=== PATIENT | male | born 1965 | race African-American/Black ===

== ENCOUNTER 2024-10-16 22:31 | Inpatient (IN) | payer SELFPAY ==
[~2024-10-16] VITALS: Ht 188 cm; Wt 79.4 kg
[2024-10-16 22:37] VITALS: O2SAT 100
[2024-10-16] MEDS ORDERED: MORPHINE SULFATE 4 MG/ML INJ (FOR IV/IM USE) IV STA (23:30)
[2024-10-17] MEDS: ONDANSETRON HCL 4MG/2ML INJ IV NR ×2 (00:30→05:39)
[2024-10-17] MEDS: ONDANSETRON HCL 4MG/2ML INJ IV STA (01:01)
[2024-10-17] MEDS: MORPHINE SULFATE 4 MG/ML INJ (FOR IV/IM USE) IV NR (01:03)
[2024-10-17] MEDS: SODIUM CHLORIDE 0.9% 1,000 ML IV ONE (01:04)
[2024-10-17 01:41] LABS: BASOPHILS % 0.3 % (0.0-2.0); EOSINOPHILS % 0.3 % (0.0-5.0); HEMOGLOBIN. 13.6 g/dL (14.0-18.0); LYMPHOCYTES % 14.1 % (20.0-50.0); MEAN CORPUSCULAR HEMOGLOBIN 31.2 pg (28.0-32.0); MEAN CORPUSCULAR HGB CONC 34.1 g/dL (31.0-37.0); MEAN CORPUSCULAR VOLUME 91.6 fL (80.0-94.0); MEAN PLATELET VOLUME 8.3 fl (7.4-10.4); MONOCYTES % 9.6 % (2.0-8.0); NEUTROPHILS % 75.7 % (40.0-76.0); PLATELET 137 x1000/uL (130-400); RED BLOOD CELL COUNT 4.37 mill/uL (4.7-6.1); RED CELL DISTRIBUTION WIDTH 13.8 % (11.6-14.6); WHITE BLOOD COUNT 9.6 x1000/uL (4.5-11.0)
[2024-10-17 01:59] LABS: CHLORIDE 106 mEq/L (98-107); POTASSIUM 3.8 mEq/L (3.5-5.1); SODIUM 141 mEq/L (136-145)
[2024-10-17 02:00] LABS: CALCIUM 8.4 mg/dL (8.7-10.4); CARBON DIOXIDE 24 mEq/L (21-32)
[2024-10-17 02:05] LABS: CREATININE 0.9 mg/dL (0.6-1.3); ETHANOL BLOOD 155 mg/dL (<10); GLUCOSE 109 mg/dL (70-105); TROPONIN I HIGH SENSITIVITY 5 ng/L (3.0-53); UREA NITROGEN BLOOD 8 mg/dL (9-23)
[2024-10-17 05:04] VITALS: BP 132/92; PULSE 71; RESP 19; TEMP 36.8
[2024-10-17 08:00] VITALS: BP 142/91; PULSE 79; RESP 18; TEMP 36.9
[2024-10-17] MEDS ORDERED: DOCUSATE SODIUM 100MG CAPSULE PO PRN (09:00)
[2024-10-17] MEDS ORDERED: CLONIDINE 0.1MG TABLET PO PRN (09:00)
[2024-10-17] MEDS ORDERED: GUAIFENESIN 200MG/10ML SUGAR FREE UDC PO PRN (09:00)
[2024-10-17] MEDS ORDERED: MAGNESIUM/ALUMINUM HYDROXIDE/SIMETHICONE 30ML UDC PO PRN (09:00)
[2024-10-17] MEDS ORDERED: DEXTROSE 50% WATER 50ML SYRINGE IV PRN (09:00)
[2024-10-17] MEDS: PANTOPRAZOLE SODIUM 40 MG/VIAL IV SCH (09:00)
[2024-10-17] MEDS ORDERED: NALOXONE HCL 0.4MG/ML VIAL IV PRN (09:15)
[2024-10-17] MEDS: ONDANSETRON HCL 4MG/2ML INJ IV PRN (10:09)
[2024-10-17 10:51] LABS: CLARITY URINE CLEAR (CLEAR); COLOR URINE YELLOW (YELLOW); GLUCOSE URINE NEGATIVE (NEGATIVE); KETONES URINE NEGATIVE (NEGATIVE); LEUKOCYTE ESTERASE URINE NEGATIVE (NEGATIVE); NITRITE URINE NEGATIVE (NEGATIVE); OCCULT BLOOD URINE 1+ (NEGATIVE); PROTEIN URINE NEGATIVE (NEGATIVE); UROBILINOGEN URINE 0.2 E.U./dL (0.2-1.0)
[2024-10-17] MEDS: MORPHINE SULFATE 4 MG/ML INJ (FOR IV/IM USE) IV PRN (11:05)
[2024-10-17 11:10] LABS: *AMPHETAMINES SCREEN URINE NEGATIVE (NEGATIVE); *BARBITURATES SCREEN URINE NEGATIVE (NEGATIVE); *BENZODIAZEPINES SCREEN URINE NEGATIVE (NEGATIVE); *COCAINE SCREEN URINE NEGATIVE (NEGATIVE); METHADONE URINE SCREEN NEGATIVE (NEGATIVE); OPIATES URINE SCREEN PRESUMPTIVE POSITIVE (NEGATIVE); PHENCYCLIDINE URINE SCREEN NEGATIVE (NEGATIVE)
[2024-10-17 11:11] LABS: CANNABINOID URINE SCREEN PRESUMPTIVE POSITIVE (NEGATIVE); ECSTASY MDMA SCREEN URINE NEGATIVE (NEGATIVE)
[2024-10-17] MEDS: MVI, ADULT NO.1 10 ML, FOLIC ACID 1 MG, THIAMINE HCL 100 MG in SODIUM CHLORIDE 0.9% 1,0... IV ONE (11:19)
[2024-10-17 11:44] LABS: BACTERIA URINE NONE SEEN; RBC URINE 0-2 /hpf (0-2); SQUAMOUS EPITHELIAL CELL URINE RARE /lpf (RARE/1+); WBC URINE 0-2 /hpf (0-2); YEAST URINE NONE SEEN
[2024-10-17 12:00] VITALS: BP 134/87; PULSE 82; TEMP 37.1
[2024-10-17 15:58] VITALS: BP 138/89; PULSE 74; RESP 18; TEMP 36.5
[2024-10-17 20:00] VITALS: BP_SYST 149; BP_SYST 150; BP_SYST 158; BP_DIAS 105; BP_DIAS 94; BP_DIAS 98; PULSE 76; RESP 21; TEMP 36.7; O2SAT 98
[2024-10-17] MEDS: ACETAMINOPHEN 325MG TABLET PO PRN (20:33)
[2024-10-17 21:48] LABS: CREATINE KINASE 242 IU/L (46-171); TROPONIN I HIGH SENSITIVITY 8 ng/L (3.0-53)
[2024-10-17 22:04] LABS: HEPATITIS B SURFACE ANTIGEN NEGATIVE (Negative)
[2024-10-17 22:25] LABS: HEPATITIS C AB NON REACTIVE (Neg) (Negative)
[2024-10-18] VITALS (7 sets, daily range): BP systolic 130–158; BP diastolic 78–99; PULSE 61–78; RESP 18–26; TEMP 36.7–37.3; O2SAT 93–98
[2024-10-18 06:58] LABS: CHLORIDE 105 mEq/L (98-107); POTASSIUM 3.9 mEq/L (3.5-5.1)
[2024-10-18 06:59] LABS: CARBON DIOXIDE 24 mEq/L (21-32); SODIUM 137 mEq/L (136-145)
[2024-10-18 07:04] LABS: CREATININE 0.9 mg/dL (0.6-1.3); GLUCOSE 109 mg/dL (70-105); TROPONIN I HIGH SENSITIVITY 8 ng/L (3.0-53)
[2024-10-18 07:05] LABS: LDL CHOLESTEROL 112 mg/dL (5-100); TRIGLYCERIDE 108 mg/dL (0-150); UREA NITROGEN BLOOD 6 mg/dL (9-23)
[2024-10-18 07:06] LABS: CREATINE KINASE 337 IU/L (46-171)
[2024-10-18 07:07] LABS: CHOLESTEROL 194 mg/dL (<200); HDL CHOLESTEROL 72 mg/dL (>55)
[2024-10-18 07:08] LABS: T4 FREE 0.86 ng/dL (0.89-1.76); THYROID STIMULATING HORMONE 2.47 uIU/mL (0.55-4.78)
[2024-10-18 07:57] LABS: BASOPHILS % 0.4 % (0.0-2.0); EOSINOPHILS % 0.8 % (0.0-5.0); HEMATOCRIT. 39.1 % (42.0-52.0); HEMOGLOBIN. 13.8 g/dL (14.0-18.0); LYMPHOCYTES % 32.5 % (20.0-50.0); MEAN CORPUSCULAR HEMOGLOBIN 31.5 pg (28.0-32.0); MEAN CORPUSCULAR HGB CONC 35.2 g/dL (31.0-37.0); MEAN CORPUSCULAR VOLUME 89.5 fL (80.0-94.0); MONOCYTES % 14.9 % (2.0-8.0); NEUTROPHILS % 51.4 % (40.0-76.0); PLATELET 131 x1000/uL (130-400); RED BLOOD CELL COUNT 4.37 mill/uL (4.7-6.1); RED CELL DISTRIBUTION WIDTH 13.8 % (11.6-14.6); WHITE BLOOD COUNT 5.2 x1000/uL (4.5-11.0)
[2024-10-18] MEDS: FOLIC ACID 1MG TABLET PO SCH (09:40)
[2024-10-18] MEDS: MULTIVITAMINS,THER W-MINERALS TABLET PO SCH (09:41)
[2024-10-18] MEDS: THIAMINE HCL 100MG TABLET PO SCH (09:41)
[2024-10-19] VITALS: BP 130/87; PULSE 70; RESP 19; TEMP 36.9; O2SAT 95
[2024-10-19 04:00] VITALS: BP 125/96; PULSE 59; RESP 20; TEMP 36.7; O2SAT 94
[2024-10-19 07:07] LABS: BASOPHILS % 0.5 % (0.0-2.0); EOSINOPHILS % 1.2 % (0.0-5.0); HEMATOCRIT. 42.3 % (42.0-52.0); HEMOGLOBIN. 14.1 g/dL (14.0-18.0); LYMPHOCYTES % 50.5 % (20.0-50.0); MEAN CORPUSCULAR HEMOGLOBIN 30.3 pg (28.0-32.0); MEAN CORPUSCULAR HGB CONC 33.3 g/dL (31.0-37.0); MEAN CORPUSCULAR VOLUME 90.8 fL (80.0-94.0); MEAN PLATELET VOLUME 8.9 fl (7.4-10.4); MONOCYTES % 13.2 % (2.0-8.0); NEUTROPHILS % 34.6 % (40.0-76.0); PLATELET 133 x1000/uL (130-400); RED BLOOD CELL COUNT 4.66 mill/uL (4.7-6.1); RED CELL DISTRIBUTION WIDTH 13.9 % (11.6-14.6); WHITE BLOOD COUNT 5.3 x1000/uL (4.5-11.0)
[2024-10-19 07:19] LABS: CALCIUM 9.2 mg/dL (8.7-10.4); CARBON DIOXIDE 26 mEq/L (21-32); CHLORIDE 104 mEq/L (98-107); POTASSIUM 3.6 mEq/L (3.5-5.1); SODIUM 140 mEq/L (136-145)
[2024-10-19 07:24] LABS: CREATININE 0.9 mg/dL (0.6-1.3)
[2024-10-19 07:25] LABS: GLUCOSE 109 mg/dL (70-105); UREA NITROGEN BLOOD 9 mg/dL (9-23)
[2024-10-19 07:35] VITALS: BP 129/85; PULSE 60; RESP 18; O2SAT 95
[2024-10-19 08:00] VITALS: BP 132/86; PULSE 75; RESP 21; TEMP 37.1; O2SAT 96
== END 2024-10-19 15:30 | disposition left against medical advice (07) | DRG 204 ==
LOC: ER 22:31 → 3WST 10-17 01:54 → EDBEDREQ 10-17 01:57 → EDBEDREQTM 10-17 01:57 → EDBEDREQDT 10-17 01:57 → ENRESERV 10-17 02:48
PROVIDERS: ADMIT Hospitalist; ATTEND Hospitalist
DX: I95.1 Orthostatic hypotension (principal); H05.20 Unspecified exophthalmos; S02.31XA Fracture of orbital floor, right side, initial encounter for closed fracture; S02.40CA Maxillary fracture, right side, initial encounter for closed fracture; S02.19XA Other fracture of base of skull, initial encounter for closed fracture; S02.841A Fracture of lateral orbital wall, right side, initial encounter for closed fracture; S02.40EA Zygomatic fracture, right side, initial encounter for closed fracture; D64.9 Anemia, unspecified; R73.9 Hyperglycemia, unspecified; Z53.29 Procedure and treatment not carried out because of patient's decision for other reasons; M62.830 Muscle spasm of back; W18.39XA Other fall on same level, initial encounter; H05.89 Other disorders of orbit; F10.929 Alcohol use, unspecified with intoxication, unspecified; Y90.9 Presence of alcohol in blood, level not specified; Z79.899 Other long term (current) drug therapy; Y93.89 Activity, other specified; Y92.89 Other specified places as the place of occurrence of the external cause; Y99.8 Other external cause status
CPT/HCPCS: 36415; 70486; 71045; 80048; 80061; 80305; 80320; 81003; 82550; 83036; 83735; 84439; 84443; 84484; 85025; 85379; 86705; 87340; 93005; 99285; J2270; J2405; J2470; J3411; J3490; J7030; G0480